=== PATIENT | female | born 1975 | race Caucasian/White ===

== ENCOUNTER 2017-06-28 18:30 | Emergency (ER) | payer OTHER ==
[2017-06-28 19:18] LABS: BASOPHILS # (AUTO) 0.1 10^3/uL (0.0-0.1); BASOPHILS % (AUTO) 0.6 %; EOSINOPHILS # (AUTO) 0.8 10^3/uL (0.0-0.7); EOSINOPHILS % (AUTO) 6.6 %; HGB - HEMOGLOBIN 13.3 g/dL (12.0-16.0); LYMPHOCYTES # (AUTO) 1.9 10^3/uL (1.5-3.5); MEAN CORPUSCULAR HEMOGLOBIN 28.5 pg (27.0-31.0); MEAN CORPUSCULAR VOLUME 89.1 fL (81.0-99.0); MEAN PLATELET VOLUME 10.1 fL (7.9-10.8); MONOCYTES # (AUTO) 0.6 10^3/uL (0.0-1.0); MONOCYTES % (AUTO) 5.1 %; NEUTROPHILS % (AUTO) 70.7 %; PLT - PLATELET COUNT 231 10^3/uL (130-450); RED BLOOD COUNT 4.66 10^6/uL (4.20-5.40); RED CELL DISTRIBUTION WIDTH 13.4 % (12.0-15.0); WHITE BLOOD COUNT 11.4 x10^3/uL (4.8-10.8)
[2017-06-28 19:20] LABS: BILIRUBIN,URINE NEGATIVE (NEGATIVE); GLUCOSE, URINE (UA) NEGATIVE (NEGATIVE); KETONES,URINE (UA) TRACE mg/dL (NEGATIVE); LEUKOCYTE ESTERASE, URINE NEGATIVE (NEGATIVE); NITRITE,URINE NEGATIVE (NEGATIVE); OCCULT BLOOD,URINE SMALL (NEGATIVE); PROTEIN,URINE NEGATIVE (NEGATIVE); UROBILINOGEN,URINE 0.2 (NORMAL) E.U./dL (NORMAL)
[2017-06-28 19:23] LABS: CLARITY,URINE CLEAR (CLEAR); HCG UR QUAL NEGATIVE
[2017-06-28 19:30] LABS: ALBUMIN 4.6 g/dL (3.2-5.5); ALBUMIN/GLOBULIN RATIO 1.4 (1.0-2.2); BILIRUBIN,TOTAL 0.4 mg/dL (0.2-1.0); CALCIUM 9.1 mg/dL (8.5-10.3); CREATININE 0.6 mg/dL (0.4-1.0); TOTAL PROTEIN 7.8 g/dL (6.7-8.2)
--- NOTE | 2017-06-28 19:31 | ED Physician Documentation ---
PD HPI ABD PAIN - Stated complaint Stated Complaint: ABD PX - Chief complaint Chief Complaint: Abd Pain - History obtained from History obtained from: Patient - History of Present Illness Timing - onset: How many weeks ago (1) Timing - duration: Weeks (1) Timing - details: Abrupt onset (adfter eating some spicy food a week ago, and pain is worse about 20-30 minutes after eating.), Still present, Waxing and waning Quality: Cramping, Aching, Pain Location: All over / everywhere, Periumbilical Radiation: No: Chest, Left flank, Right flank Improved by: No: Eating, Position Worsened by: Eating. No: Breathing, Position Associated symptoms: Nausea, Diarrhea. No: Fever, Vomiting, Constipation, Melena, Weight loss Similar symptoms before: Has not had sx before Recently seen: Clinic (seen by PMD and Rx with Omeprazole few days ago.) Review of Systems Constitutional: denies: Fever, Chills Nose: denies: Rhinorrhea / runny nose, Congestion Throat: denies: Sore throat Cardiac: denies: Chest pain / pressure, Palpitations Respiratory: denies: Dyspnea, Cough, Wheezing GI: reports: Abdominal Pain, Nausea, Diarrhea. denies: Vomiting, Constipation Skin: denies: Rash, Lesions Neurologic: denies: Generalized weakness, Difficulty speaking Endocrine: denies: Weight loss, Easy bruising / bleeding PD PAST MEDICAL HISTORY - Past Medical History Past Medical History: Yes Cardiovascular: None Respiratory: None Neuro: None Endocrine/Autoimmune: HyPOthyroidism GI: None - Past Surgical History Past Surgical History: Yes General: Cholecystectomy - Present Medications Home Medications: Ambulatory Orders Medication Instructions Recorded Confirmed Dexamethasone [Decadron] 4 mg PO DAILY #5 tablet 06/28/17 Dicyclomine [Bentyl] 10 mg PO TID #20 capsule 06/28/17 Levothyroxine [Synthroid] 112 mcg PO DAILY 06/28/17 - Allergies Allergies/Adverse Reactions: Allergies Allergy/AdvReac Type Severity Reaction Status Date / Time codeine Allergy Unknown Verified 06/28/17 18:57 - Social History Does the pt smoke?: No Smoking Status: Never smoker Does the pt drink ETOH?: No - Immunizations Immunizations are current?: Yes PD ED PE NORMAL - Vitals Vital signs reviewed: Yes - General General: Alert and oriented X 3, No acute distress, Well developed/nourished - HEENT HEENT: Moist mucous membranes, Pharynx benign - Neck Neck: Supple, no meningeal sign, No adenopathy - Cardiac Cardiac: RRR, No murmur - Respiratory Respiratory: No respiratory distress - Abdomen Abdomen: Normal bowel sounds, Soft, Non tender, Non distended - Derm Derm: Warm and dry - Extremities Extremities: No deformity, No tenderness to palpate, No edema, No calf tenderness / cord - Neuro Neuro: Alert and oriented X 3, No motor deficit, Normal speech Eye Opening: Spontaneous Motor: Obeys Commands Verbal: Oriented GCS Score: 15 Results - Vitals Vitals: Oxygen O2 Source Room air - Labs Labs: Laboratory Tests 06/28/17 06/28/17 06/28/17 19:05 19:12 19:12 WBC 11.4 H RBC 4.66 Hgb 13.3 Hct 41.5 MCV 89.1 MCH 28.5 MCHC 32.0 RDW 13.4 Plt Count 231 MPV 10.1 Neut # 8.0 H Lymph # 1.9 [place] # 0.6 Eos # 0.8 H Baso # 0.1 Absolute Nucleated RBC 0.01 Nucleated RBC % 0.1 Sodium 135 Potassium 3.8 Chloride 103 Carbon Dioxide 26 Anion Gap 6.0 BUN 10 Creatinine 0.6 Estimated GFR (MDRD) 110 Glucose 113 H Calcium 9.1 Total Bilirubin 0.4 AST 18 ALT 14 Alkaline Phosphatase 66 Total Protein 7.8 Albumin 4.6 Globulin 3.2 Albumin/Globulin Ratio 1.4 Lipase 18 L Urine Color YELLOW Urine Clarity CLEAR Urine pH 5.0 Ur Specific [place] 1.025 Urine Protein NEGATIVE Urine Glucose (UA) NEGATIVE Urine Ketones TRACE Urine Occult Blood SMALL H Urine Nitrite NEGATIVE Urine Bilirubin NEGATIVE Urine Urobilinogen 0.2 (NORMAL) Ur Leukocyte Esterase NEGATIVE Urine RBC 0-5 Urine WBC 4-5 Ur Squamous Epith Cells MANY Squamous H Urine Crystals 26-50 Ca Oxalate Urine Bacteria Few Urine Mucus Few Strands Ur Microscopic Review INDICATED Urine Culture Comments NOT INDICATED Urine HCG, Qual NEGATIVE - Rads (name of study) abd/pelvic CT Radiology: Prelim report reviewed (no acute process seen), EMP read contemporaneously PD MEDICAL DECISION MAKING - ED course Complexity details: reviewed results, considered differential (almost seems Gallbladder but her is out and LFTs/alk phos are okay, so not ductal. GI cocktail did not eliminate it. With the general pains and some diarrhea with the nausea, consider colitis of either viral or will send some home with stool collection kit.), d/w patient Departure - Departure Disposition: 01 Home, Self Care Clinical Impression: Colitis Abdominal pain Qualifiers: Abdominal location: periumbilical Qualified Code(s): R10.33 - Periumbilical pain Condition: Stable Record reviewed to determine appropriate education?: Yes Instructions: Abdominal Pain Follow-Up: GARRY SETH [Primary Care Provider] - Prescriptions: Dexamethasone [Decadron] 4 mg PO DAILY #5 tablet Dicyclomine [Bentyl] 10 mg PO TID #20 capsule Comments: Continue the omeprazole prescribed earlier today. Use the nausea medicine if needed. Add dicyclomine antispasmodic 2-3 times a day to reduce intestinal spasms. There may be some inflammation through the colon and so use the Decadron daily for 5 days. Recheck if not improved over the next several days. Subsequently if you continue to have symptoms despite the above medications, your primary care may consider setting you up for colonoscopy to evaluate for conditions such as colitis or Crohn's disease. However this likely was a viral illness such as he does continue with some irritation. Discharge Date/Time: 06/28/17 22:35
[2017-06-28 19:32] LABS: BACTERIA,URINE Few /HPF (None Seen); CRYSTALS,URINE 26-50 Ca Oxalate /LPF; MUCUS,URINE Few Strands; RBC,URINE 0-5 /HPF (0-5); SQUAMOUS EPITHELIAL CELL,UR MANY Squamous (<= Few)
[2017-06-28] MEDS ORDERED: HYDROmorphone 1 MG/ML CARPUJECT IVP STA (20:41)
[2017-06-28] MEDS ORDERED: SODIUM CHLORIDE 0.9% 1,000 ML IV ONE (20:41)
[2017-06-28] MEDS ORDERED: KETOROLAC 60 MG/2 ML VIAL IVP STA (20:41)
[2017-06-28] MEDS ORDERED: ONDANSETRON 4 MG/2 ML VIAL IVP STA (20:41)
[2017-06-28] MEDS ORDERED: IOPAMIDOL-300 100 ML VIAL ONE (20:53)
[2017-06-28] MEDS ORDERED: IOPAMIDOL-300 100 ML VIAL IVP ONE (21:16)
--- NOTE | 2017-06-28 21:56 | CT Report ---
EXAM: CT ABDOMEN AND PELVIS EXAM DATE: 06/28/2017 09:22 PM. CLINICAL HISTORY: Mid abd pain for 3 days. COMPARISONS: None. TECHNIQUE: Routine helical CT imaging was performed through the abdomen and pelvis. IV contrast: 100M L ISOVUE 300. Enteric contrast: No. Reconstructions: Coronal and sagittal. In accordance with CT protocol optimization, one or more of the following dose reduction techniques w ere utilized for this exam: automated exposure control, adjustment of mA and/or KV based on patient s ize, or use of iterative reconstructive technique. FINDINGS: Lung Bases: Unremarkable. Liver: Normal. No masses. Gallbladder/Bile Ducts: The gallbladder surgically absent. Spleen: Normal. Pancreas: Normal. Adrenal Glands: Normal. Kidneys: Normal. No masses or hydronephrosis. Peritoneal Cavity/Bowel: No dilated bowel or transition zone. No abnormal fluid or gas collection. Th e appendix is well visualized and normal. Pelvic Organs: The uterus is retroverted. The urinary bladder is empty. The ovaries appear normal in size for age. Previous bilateral fallopian tube procedure noted. Vasculature: No aneurysms or other significant abnormality. Bones: No significant abnormality. Other: None. IMPRESSION: No significant CT abnormality of the abdomen or pelvis. [facility] Referring Provider Line: [phone] SITE ID: [id number]
[2017-06-28 22:15] VITALS: BP 112/61
[2017-06-28] MEDS ORDERED: DEXAMETHASONE 10 MG/ML VIAL IVP STA (22:16)
== END 2017-06-28 22:35 | disposition home or self-care (01) ==
LOC: ED 18:30
DX: K52.9 Noninfective gastroenteritis and colitis, unspecified (principal); R10.33 Periumbilical pain; E03.9 Hypothyroidism, unspecified
CPT/HCPCS: 36415; 74177; 80053; 81001; 81025; 83690; 85025; 96361; 96374; 96375; 99283; 99284; Q9967; 81003; 87086